=== PATIENT | female | born 1940 | race Caucasian/White ===

== ENCOUNTER → 2016-06-14 | Outpatient (CLI) | payer MEDICARE, OTHER | END | disposition home or self-care (01) | LOC: GMAB 10:26 | PROVIDERS: ATTEND Family Medicine | DX: Z79.899 Other long term (current) drug therapy (principal) ==

== ENCOUNTER 2017-03-03 16:57 | Observation (INO) | payer MEDICARE, OTHER ==
--- NOTE | 2017-03-03 17:47 | RAD ---
EXAM DESCRIPTION: Chest,1 View CLINICAL HISTORY: drowsy COMPARISON: 26 November 2011 TECHNIQUE: AP portable chest FINDINGS: A poor respiratory effect is observed. The heart is within range of normal. No pleural fluid is seen. Some atelectatic type parenchymal changes are observed in the lung bases. IMPRESSION: A poor respiratory effect is observed with basilar atelectatic type parenchymal changes. Electronically signed by: John Talley MD 03/03/2017 5:46 PM NUCLEAR FUELS RESEARCH ENGINEER
[2017-03-03] MEDS ORDERED: POTASSIUM CHLORIDE ELIXIR 20 MEQ/15 ML UD PO ONE (17:52)
[2017-03-03] MEDS ORDERED: SODIUM CHLORIDE 0.9% 1000ML 1,000 ML IVS ONE (18:47)
--- NOTE | 2017-03-03 19:35 | CT ---
Procedure: CT HEAD WITHOUT IV CONTRAST Exam Date: 03/03/2017 6:47 PM ENVIRONMENTAL CONSULTANT Ordering Provider: Shadi Merida Clinical Indication: drowsiness Comparison: None Technique: CT images of the head were obtained without contrast administration. Coronal and sagittal reformats were obtained. This exam was performed according to our departmental dose-optimization program which includes automated exposure control, adjustment of the mA and/or kV according to patient size and/or use of iterative reconstruction technique. Findings: There is no acute cortical infarction, hemorrhage, midline shift, mass effect, or hydrocephalus. The calvaria and skull base are unremarkable. Paranasal sinuses and mastoid air cells are well aerated. Impression: 1. No acute intracranial abnormality. Electronically signed by: Sae Mayen MD 03/03/2017 7:34 PM ENVIRONMENTAL CONSULTANT
--- NOTE | 2017-03-03 19:50 | ED.PDOC ---
History of Present Illness - General Chief Complaint: Neuro Symptoms/Deficits Stated Complaint: high bp Time Seen by Provider: 03/03/17 17:14 Source: patient, family Exam Limitations: clinical condition - History of Present Illness Initial Comments: The patient is a 77-year-old female presenting to the emergency room with family secondary to feeling drowsy and stumbling around when she is walking. She does know where she has she does know what's going on. There is some question as to whether the patient may be took one of her sleeping medications this morning on accident. She has been taking some cough and cold medications and did take a 24-hour Heather approximately 30-45 minutes before she became significantly drowsy. She has had some runny nose and a mild cough and a very mild sore throat. No nuchal rigidity. She is easily arousable and oriented here. She is not complaining of anything else. Timing/Duration: 1-3 hours Severity: moderate Improving Factors: nothing Worsening Factors: nothing Associated Symptoms: malaise Allergies/Adverse Reactions: Allergies NO KNOWN ALLERGY Allergy (Unverified 03/28/13 17:33) Home Medications: Ambulatory Orders Dextromethorphan Polistirex [Delsym Cough Childrens] 30 mg PO BID PRN 03/03/17 Esomeprazole Magnesium 40 mg PO DAILY 03/03/17 Fexofenadine HCl 180 mg PO DAILY 03/03/17 Temazepam 30 mg PO BEDTIME 03/03/17 Review of Systems - Review of Systems Constitutional: States: malaise EENTM: States: nose congestion, throat pain Respiratory: States: cough - ild Cardiology: States: no symptoms reported Gastrointestinal/Abdominal: States: no symptoms reported Genitourinary: States: no symptoms reported Musculoskeletal: States: no symptoms reported Skin: States: no symptoms reported Neurological: States: other - drowsy Endocrine: States: no symptoms reported Hematologic/Lymphatic: States: no symptoms reported All other Systems: No Change from Baseline Past Medical History (General) - Patient Medical History Hx Seizures: No Hx Stroke: No Hx Dementia: No Hx Asthma: No Hx of COPD: No Hx Cardiac Disorders: No Hx Congestive Heart Failure: No Hx Pacemaker: No Hx Hypertension: Yes - doesn't take medication Hx Thyroid Disease: No Hx Diabetes: No Hx Gastroesophageal Reflux: Yes Hx Renal Disease: No Hx Cancer: No Hx of HIV: No Hx Hepatitis C: No Hx MRSA: No - Vaccination History Hx Tetanus, Diphtheria Vaccination: No Hx Influenza Vaccination: No Hx Pneumococcal Vaccination: No Immunizations Up to Date: No - Social History Hx Tobacco Use: No Hx Chewing Tobacco Use: No Hx Alcohol Use: No Hx Substance Use: No Hx Substance Use Treatment: No Hx Depression: No Feels Threatened In Home Enviroment: No Feels Threatened In a Relationship: No Hx Physical Abuse: No Hx Emotional Abuse: No Hx Suspected Abuse: No - Female History Patient is a Female of Child Bearing Age (10 -59 yrs old): No Family Medical History - Family History Mother Family History: No Known Age at (years of age): 94 Cause of : old age Physical Exam - Physical Exam General Appearance: Comfortable, No apparent distress, Other - drowsy Eye Exam: bilateral normal Ears, Nose, Throat: hearing grossly normal, nasal congestion, pharyngeal erythema - mild Neck: non-tender, full range of motion Respiratory: lungs clear, normal breath sounds, no respiratory distress, no accessory muscle use Cardiovascular/Chest: normal peripheral pulses, regular rate, rhythm, no edema Peripheral Pulses: radial,right: 2+, radial,left: 2+, dorsalis pedis,right: 2+, dorsalis pedis,left: 2+ Gastrointestinal/Abdominal: non tender, soft Rectal Exam: deferred Back Exam: no CVA tenderness, no vertebral tenderness Extremity: normal range of motion, non-tender, normal inspection, no pedal edema , normal capillary refill Neurologic: occupational health nurse manager II-XII nml as tested, no motor/sensory deficits, oriented x 3 Skin Exam: normal color Comments: Vital Signs - 24 hr 03/03/17 03/03/17 03/03/17 16:57 17:06 17:57 Temperature 97.8 F Pulse Rate 67 Pulse Rate [ 83 83 67 Right Radial] Respiratory 18 18 18 Rate Blood Pressure 136/82 144/68 [Right Arm] O2 Sat by Pulse 96 98 Oximetry 03/03/17 03/03/17 18:00 19:00 Temperature 98.0 F Pulse Rate 67 Pulse Rate [ 76 74 Right Radial] Respiratory 18 20 Rate Blood Pressure 162/61 154/55 [Right Arm] O2 Sat by Pulse 96 96 Oximetry Progress - Progress Progress: 03/03/17 19:59 the patient is a 77-year-old female presenting with significant drowsiness of uncertain origin. It is however most likely due to the medication she has been taking for her recent cold in combination with her sleep medications. It is possible her sleep medications are not entirely worn off and she does take a rather large dose. She may have also accidentally taking one of her sleep pills. The patient has received a liter of IV fluids. We are going to monitor the patient overnight to monitor her mental status and make sure she improves rather than deteriorates. The patient has tested negative for flu. - Results/Orders Results/Orders: 03/03/17 17:14 Telemetry .CONTINUOUS nsr 03/03/17 19:36 UA [URINALYSIS] Stat pending Laboratory Results - last 24 hr 03/03/17 03/03/17 17:24 17:24 WBC 4.4 L RBC 4.27 Hgb 12.6 Hct 38.2 MCV 89.4 MCH 29.5 MCHC 33.0 RDW 13.8 Plt Count 254 MPV 7.4 Absolute Neuts (auto) 2.00 Absolute Lymphs (auto) 2.10 Absolute Monos (auto) 0.30 Absolute Eos (auto) 0.10 Absolute Basos (auto) 0.00 Neutrophils % 45.0 Lymphocytes % 46.3 Monocytes % 5.7 Eosinophils % 2.6 Basophils % 0.4 Sodium 138 Potassium 3.4 L Chloride 104 Carbon Dioxide 26 Anion Gap 11.4 L BUN 9 Creatinine 0.46 L BUN/Creatinine Ratio 19.6 Random Glucose 104 Serum Osmolality 274.7 L Calcium 9.3 Magnesium 2.0 Total Bilirubin 0.5 AST 19 ALT 19 Alkaline Phosphatase 82 Creatine Kinase 47 CK-MB (CK-2) 1.0 CK-MB (CK-2) % Not Reportable Troponin I < 0.02 B-Natriuretic Peptide 29.6 Serum Total Protein 6.6 Albumin 3.8 Globulin 2.8 Albumin/Globulin Ratio 1.4 telemetry monitoring shows normal sinus rhythm. chest x-ray shows no acute pathology. No overt pneumonia. No evidence of fluid overload. cT of the head shows no acute intracranial pathology. No evidence of a stroke or hemorrhage. Departure - Departure Clinical Impression: Altered mental status, unspecified Qualifiers: Altered mental status type: somnolence Qualified Code(s): R40.0 - Somnolence Disposition: Admit Patient Home Medications: Ambulatory Orders Dextromethorphan Polistirex [Delsym Cough Childrens] 30 mg PO BID PRN 03/03/17 Esomeprazole Magnesium 40 mg PO DAILY 03/03/17 Fexofenadine HCl 180 mg PO DAILY 03/03/17 Temazepam 30 mg PO BEDTIME 03/03/17 Decision To Admit - Decistion To Admit Decision to Admit Reason: Medical Nature Decision to Admit Date: 03/03/17 Decision to Admit Time: 20:01
--- NOTE | 2017-03-03 21:06 | HP ---
SUPERVISING PHYSICIAN: Kaleb Harry MD CHIEF COMPLAINT: Elevated blood pressure, drowsiness. HISTORY OF PRESENT ILLNESS: Ms. Pandya is a 77-year-old, female patient who presented to the Emergency Room today accompanied by her family secondary to reported feeling drowsy and some discoordination and stumbling around when she was walking. She noted she had an upper respiratory illness with a runny nose and congestion and has been taking cough medicine, Delsym, for the last several days. She noted that today she had taken her cough medicine and went to the [employer] and when she left the [employer], she started feeling strange, was dizzy, sleepy and felt like her blood pressure was high. She also notes she does take a high dose of sleep medication to include Restoril 30 mg at night. In addition to that, she has been taking Heather 24 hour for her sinus symptoms. She noted when she took her Heather shortly after taking her cough medicine, she became drowsy. In the Emergency Room, her blood pressure was noted to be slightly elevated initially with blood pressure of 136/ 82. Saturation 96% on room air with heart rate of 83 and she was afebrile. Her initial laboratory studies showed she had a normal CBC and chemistries indicated she had a mild hypokalemia with potassium 3.4. Otherwise, chemistries were within normal limits. Urinalysis was also within normal limits. She had a CT of the head and chest and per radiologic interpretation the CT of the head without contrast showed no acute intracranial abnormalities noted. On the chest film, there was just some poor inspiratory effort noted with some basilar atelectatic type of parenchymal changes. On exam in the Emergency Room per Emergency Room physician, Dr. Shadi Merida, the patient was found to be alert and oriented, just slightly drowsy, but was not showing any neuro focal deficits or any significant confusion. She was given some p.o. potassium a 1 liter of fluids. Given her drowsiness and concerns for possible adverse side effects from her Delsym and Heather, Dr. Merida requested the patient be placed in observation for close neuro observation and correction of her underlying hypokalemia. The patient was placed in observation in stable condition. PAST MEDICAL HISTORY: 1. Seasonal allergies. 2. Gastroesophageal reflux disease. 3. Osteoarthritis. 4. Depression. PAST SURGICAL HISTORY: 1. Left total knee arthroplasty. HOME MEDICATIONS: 1. Fexofenadine 180 mg daily. 2. Temazepam 30 mg daily. 3. Delsym cough 30 mg b.i.d. 4. Nexium 40 mg daily. ALLERGIES: NO KNOWN DRUG ALLERGIES. FAMILY HISTORY: Father at age 74 from aneurysm. Mother from myocardial infarction. There is also a history of ovarian cancer in siblings. SOCIAL HISTORY: The patient is retired. She lives in [place]. She is . She has never smoked, nor does she drink alcohol or use illicit drugs. REVIEW OF SYSTEMS: CONSTITUTIONAL: General malaise. No reported fevers. HEENT: Nasal congestion, sore throat. RESPIRATORY: Nonproductive cough. No reported shortness of breath or wheezing. CARDIOVASCULAR: Denies chest pain or palpitations. No syncopal or near syncopal episodes. GASTROINTESTINAL: Denies nausea or vomiting. No diarrhea or constipation or other bowel habit changes. GENITOURINARY: Denies dysuria, hematuria or other urinary symptoms. NEUROLOGIC: As noted in history of present illness, drowsy, but no reported focal deficits, no headaches, no significant vision changes. No syncopal episodes. PHYSICAL EXAMINATION: VITAL SIGNS: Temperature 97.8. Pulse 83. Blood pressure 136/82. Respirations 18. Saturation 96% on room air. Admission weight 59.5 kg. GENERAL: The patient appears to be alert and oriented on admission to the Medical/Surgical Floor. She is in no acute distress, resting comfortably. She is well-nourished, well-hydrated. HEENT: Tympanic membranes clear bilaterally. Oropharynx is pink, moist without any lesions. Posterior pharynx mildly erythematous. NECK: Supple, nontender with full range of motion. No jugular venous distention noted. CHEST: Lungs clear to auscultation bilaterally without any rhonchi, wheezes, or rales. CARDIOVASCULAR: Regular rate and rhythm without any appreciable murmurs, gallops, or rubs. ABDOMEN: Soft, nontender. Positive bowel sounds. EXTREMITIES: There is no cyanosis, clubbing or edema. NEUROLOGIC: The patient is alert and oriented times three. Cranial nerves II- XII are grossly intact. Facial features are symmetrical. Extraocular movements are within normal limits. There is no nystagmus noted. No motor or sensory deficits. LABORATORY: CBC showed white count 4,400, hemoglobin 12.6, hematocrit 30.2, platelet count 254,000, differential within normal limits. Chemistries showed mildly low potassium of 3.4, sodium normal at 138, BUN 9, creatinine 0.6, glucose 104, calcium 9.3, magnesium 2.0. Liver functions within normal limits. Cardiac enzymes within normal limits. Urinalysis showed just trace leukocyte esterase, otherwise within normal limits. MICROBIOLOGY: Influenza by PCR was negative for both A and B. RADIOLOGY: Chest x-ray in the Emergency Department, single view, portable, showed poor inspiratory effort with basilar atelectatic parenchymal changes. CT of the head without contrast per radiologic interpretation showed no acute intracranial abnormalities. Telemetry showed normal sinus rhythm. ASSESSMENT: 1. Hypersomnolence, possibly secondary to adverse effects from [id number] cough suppressant, dextromethorphan with no acute findings noted on CT of the head. 2. Mild electrolyte imbalance with hypokalemia. 3. Gastroesophageal reflux disease. 4. Chronic insomnia on temazepam. 5. Depression, not currently no an antidepressant. 6. Osteoarthritis. PLAN: The patient will be placed in observation tonight for close neurologic monitoring again with concerns for possible side effects from her cough suppressant. We will hold all medications to include her temazepam and Delsym. She was given 1 liter of fluid in the Emergency Room. This will be continued with additional fluids with normal saline with 20 of potassium at 80 an hour. She will be on DVT prophylaxis per protocol. We will anticipate her length of stay to be 1 to 2 days with anticipation of hopefully discharging tomorrow. We will plan to repeat her CMP in the morning and she should she show no changes in her neural status after ambulation efforts and if return to baseline neural status, the patient can be discharged with cautions on using her cough suppressants. Until then, we will continue to monitor the patient closely and treat appropriately. [facility][id number] [facility]
[2017-03-03] MEDS ORDERED: ACETAMINOPHEN 325 MG TAB PO PRN (22:14)
[2017-03-03] MEDS ORDERED: SODIUM CHLORIDE 0.9% (FLUSH) 10 ML SYG IV PRN (22:14)
[2017-03-03] MEDS ORDERED: IV SET AND CAP CHANGE INJ INJ SCH (22:30)
--- NOTE | 2017-03-03 23:01 | PCM.CORE ---
Physician DVT/VTE - Nurse DVT Assessment & Total Each Risk Factor Represents 3 Points: Age over 75 years DVT Assessment Score: 3 - 3-4 High Risk Treatments: Early Ambulation *, Sequential Compression Device Pharmacological: Enoxaparin 40 mg SQ Daily
[2017-03-03] MEDS: KCL 20 MEQ/NS 1,000 ML IVS PRN (23:48)
[2017-03-04] MEDS: KCL 20 MEQ/NS 1,000 ML IVS PRN (08:59)
[2017-03-04] MEDS ORDERED: ENOXAPARIN SODIUM 40 MG/0.4 ML SYG SUBCU SCH (09:00)
[2017-03-04] MEDS ORDERED: SODIUM CHLORIDE 0.9% (FLUSH) 10 ML SYG IV ONE (09:25)
[2017-03-04 10:09] VITALS: O2SAT 96
[2017-03-04 10:10] VITALS: BP 151/73; TEMP 99
--- NOTE | 2017-03-05 18:04 | DS ---
SUPERVISING PHYSICIAN: Kaleb Harry M.D. DISCHARGE DIAGNOSIS: 1. Hypersomnolence, possibly secondary to adverse effects from [id number] cough suppressant excessive usage with dextromethorphan with no acute findings on CT of the head. 2. Mild electrolyte imbalance with hypokalemia improved with replacement. 3. Gastroesophageal reflux disease. 4. Chronic insomnia on temazepam. 5. Depression, not currently on an antidepressant. 6. Osteoarthritis. REASON FOR HOSPITALIZATION: Ms. Pandya is a 77-year-old, female patient who presented to the Emergency Room on 03/03/17 accompanied by her family secondary to a report that she was feeling drowsy and had some discoordination and stumbling around when she was walking. She noted she had an upper respiratory illness with a runny nose and congestion and had been taking cough medicine to include Delsym for the last several days. She noted that today she had taken her cough medicine and went to the [employer] shop and when she left the [employer] shop, she started feeling strange, was dizzy, sleepy and felt like her blood pressure was high. She also noted she does take a high dose of sleep medication to include Restoril 30 mg at night. In addition to that, she had been taking Heather 24 hour for her sinus symptoms. She noted when she took her Heather shortly after taking her cough medicine, she became drowsy. In the Emergency Room, her blood pressure was noted to be slightly elevated initially with blood pressure of 136/82. Saturation showed 96 % on room air with heart rate of 83 and she was afebrile. Her initial laboratory studies indicated a normal CBC and chemistries had a mild hypokalemia with potassium 3.4. Otherwise, chemistries were within normal limits as well as urinalysis. She had a CT of the head and chest and per radiologic interpretation the CT of the head without contrast showed no acute intracranial abnormalities noted. On the chest film, there was just some poor inspiratory effort noted with some basilar atelectatic type of parenchymal changes. On exam in the Emergency Room per Emergency Room physician, Dr. Shadi Merida, the patient was found to be alert and oriented, just slightly drowsy, but was not showing any neurological deficits or any significant confusion. She was given some p.o. potassium a 1 liter of fluids. Given her drowsiness and concerns for possible adverse side effects from her Delsym and Heather, Dr. Merida requested the patient be placed in observation for close neuro observation and correction of her underlying hypokalemia. The patient was placed in observation in stable condition. LABORATORY STUDIES: White count was 4,400, otherwise hemoglobin and hematocrit were within normal limits as well as platelet count at 254,000. Hemoglobin showed to be 12.6, hematocrit 38.2. Differential showed to be within normal limits. Her initial chemistries showed a mild hypokalemia at 3.4, prior to discharge and after replacement her electrolytes had normalized with potassium 4.7, BUN was 8, creatinine 0.63 on discharge. Glucoses had been 100 to 104, calcium was normal at 9.3. At discharge, liver functions all showed to be within normal limits. On admission, she had a troponin that was less than 0.02. Urinalysis showed just a trace of leukocyte esterase and was otherwise within normal limits. MICROBIOLOGY: She had a Influenza swab for A and B by PCR and per those results were both negative for either A or B. RADIOLOGY: She had a chest x-ray in the Emergency Room prior to admission and per radiology interpretation there was poor respiratory effort observed with basilar atelectasis type parenchymal changes. She also had a head CT without contrast and per radiology interpretation there was no acute intracranial abnormalities noted. HOSPITAL COURSE: Ms. Pandya was admitted as noted above in her History of Present Illness for concerns for side effects of taking too much Delsym. On admission, she showed to be stable without any confusion and very comfortable. She had been given fluids. This was continued along with potassium replacement. Her medications were held overnight to include her temazepam and she was able to actually sleep through the night and in the morning was showing no signs or symptoms of either drowsiness or confusion. She was ambulated with assistance and showed no deficits, therefore it was felt that she had improved clinically well enough to be discharged home. PLAN: Ms. Pandya was discharged on 03/04/17 to have close clinical followup with her primary care provider, Dr. Banuleos. She was to call his office next week to establish an appointment time. She was instructed to take her home medications as directed except for modification of her temazepam which she was to decrease to 15 mg at bedtime until she had a chance to followup with Dr. Banuelos. She was to avoid using Delsym and other cough medicines other than prescribed medications to prevent any other side effects. She was to resume her home activities as tolerated. Her diet was to resume usual diet. Discharge medications included new prescriptions for: 1. Tessalon Perles 100 mg 3 times a day, #15. 2. Guaifenesin 600 mg a day, #15. 3. Temazepam 15 mg daily at bedtime, #15. She was to hold her temazepam 30 mg at bedtime until she is seen in followup. Again, all other medications were continued as prior to hospitalization. She was discharged again with diet to be regular diet as tolerated. Activity as tolerated. Condition on discharge was stable and improved. [facility][id number] [facility]
== END 2017-03-04 10:46 | disposition home or self-care (01) ==
LOC: ER 16:57 → MS 21:05
PROVIDERS: ADMIT Nurse Practitioner Family; ATTEND Nurse Practitioner Family
DX: R40.0 Somnolence (principal); E87.6 Hypokalemia; E87.8 Other disorders of electrolyte and fluid balance, not elsewhere classified; K21.9 Gastro-esophageal reflux disease without esophagitis; F51.04 Psychophysiologic insomnia; F32.9 Major depressive disorder, single episode, unspecified; M19.90 Unspecified osteoarthritis, unspecified site; J30.2 Other seasonal allergic rhinitis; Z79.899 Other long term (current) drug therapy
CPT/HCPCS: 36415 ×2; 70450; 71045; 80053 ×2; 81001; 82550; 82553; 83735; 83880; 84484; 85025; 87502; 94760 ×2; 96361; 96372; 96374; 96376; 99284; J1650; J3480 ×2; J7030

== ENCOUNTER → 2017-07-13 | Outpatient (CLI) | payer MEDICARE, OTHER | LOC: GMAB 10:45 | PROVIDERS: ATTEND Family Medicine | DX: Z79.899 Other long term (current) drug therapy (principal) ==

== ENCOUNTER → 2017-10-26 | Outpatient (CLI) | payer MEDICARE, OTHER ==
--- NOTE | 2017-10-26 22:06 | MRI ---
MRI right foot without contrast INDICATION: Foot pain x3 months status post trauma TECHNIQUE: Noncontrast MR imaging right foot FINDINGS: Mild thickening plantar aponeurosis with plantar enthesophyte. Achilles is intact. There is linear edema involving the cuboid middle and lateral cuneiforms suggesting nondisplaced fractures. There is also a contusion or nondisplaced fracture of the anterior talar dome with adjacent osteochondral lesion in the medial talar dome with subchondral cystic change. This lesion measures approximately 7 mm wide by 11 mm AP dimension. Subchondral fractures are visible in the middle and lateral cuneiforms and the sagittal T1 images. Similar changes of the distal cuboid These may be traumatic or insufficiency fractures. Diffuse soft tissue swelling is also noted. No complete tendon rupture noted. There is edema in the distal aspect of the proximal phalanx great toe likely degenerative. Lisfranc ligament complex is intact. Interstitial tendinosis and fissuring of the peroneus brevis. No complete split. There is minimal osteoarthrosis of the first and second MTP joints. IMPRESSION: Osteochondral lesion with edema medial talar dome Fractures of the middle and lateral cuneiforms and distal cuboid Interstitial tendinosis and fissuring peroneus brevis Electronically signed by: Rober Allen MD 10/26/2017 10:05 PM CDT
== END ==
LOC: MRI 13:00
PROVIDERS: ATTEND Family Medicine
DX: S92.211A Displaced fracture of cuboid bone of right foot, initial encounter for closed fracture (principal); S92.224A Nondisplaced fracture of lateral cuneiform of right foot, initial encounter for closed fracture; M95.8 Other specified acquired deformities of musculoskeletal system

== ENCOUNTER → 2017-11-06 | Outpatient (CLI) | payer MEDICARE, OTHER ==
--- NOTE | 2017-11-06 08:26 | RAD ---
EXAM DESCRIPTION: Foot,Right 3 Views CLINICAL HISTORY: 77 years, Female, FOOT PAIN COMPARISON: None TECHNIQUE: AP, lateral, and oblique views of the right foot FINDINGS: Mild degenerative changes are present. An accessory ossicle adjacent to the cuboid is noted. Calcaneal spurring is present. No fracture or dislocation or foreign body noted. IMPRESSION: Mild degenerative changes otherwise negative foot. Electronically signed by: Elieser Campbell MD 11/06/2017 8:25 AM CDT
== END ==
LOC: RAD 07:45
PROVIDERS: ATTEND Orthopaedic Surgery
DX: M79.671 Pain in right foot (principal)

== ENCOUNTER 2018-09-04 21:26 | Observation (INO) | payer MEDICARE, OTHER ==
[2018-09-04] MEDS ORDERED: MORPHINE SULFATE INJ 10 MG/ML VIAL IV ONE (21:39)
[2018-09-04] MEDS ORDERED: ONDANSETRON ODT 8 MG TAB SL ONE (21:46)
[2018-09-04] MEDS ORDERED: KETOROLAC TROMETHAMINE INJ 30 MG/ML VIAL IV ONE (22:03)
--- NOTE | 2018-09-04 22:16 | CT ---
PROCEDURE: Head CLINICAL HISTORY: 78 years Female abrupt onset severe sosa behind right eye COMPARISON: 03/03/2017. TECHNIQUE: Contiguous axial CT images obtained through the brain without IV contrast. This exam was performed according to our department optimization program which includes automated exposure control, adjustment of the mA and/or kv according to patient size and/or use of iterative reconstruction technique. FINDINGS: The ventricles and sulci appear unremarkable. Questionable slightly increased tissue at the posterior aspect of the cavernous sinus on the right. The possibility of a meningioma in this location is not totally excluded on this study. CT or MRI following IV contrast could be helpful to better evaluate. The appearance was similar on the previous study.. No acute hemorrhage. Microvascular ischemic changes. Small cyst in the medial left temporal lobe. Mild atherosclerotic calcifications. No fluid or significant mucosal thickening in the visualized paranasal sinuses. No depressed calvarial fractures. IMPRESSION: Questionable slightly increased tissue at the posterior aspect of the cavernous sinus on the right. The possibility of a meningioma in this location is not totally excluded on this study. CT or MRI following IV contrast could be helpful to better evaluate. The appearance was similar on the previous study.. Microvascular ischemic changes. Electronically signed by: Ruben Jones MD 09/04/2018 10:14 PM CDT
--- NOTE | 2018-09-04 23:24 | CT ---
EXAM: POSTCONTRAST BRAIN CT EXAMINATION. CLINICAL INDICATION: Right-sided headache COMPARISON: Compared to today's noncontrast brain CT examination and the noncontrast brain CT examination March 03, 2017. TECHNIQUE: Using low dose helical CT technique, thin section axial images were performed through the brain before and after the uncomplicated intravenous administration of iodinated contrast material. Coronal and sagittal reconstructions were obtained. FINDINGS: Brain volume is normal. No diffuse brain swelling or brain herniation. No hydrocephalus. No subdural or epidural hematomas. No large subacute brain infarction. No parenchymal brain hemorrhage or evidence of intracranial mass lesion. Cerebral white matter is grossly normal. Bones of the skull and skull base are normal. The middle ears and mastoid air cells are clear. There are no abnormally enhancing brain or dural based structures. No intracranial neoplasm, infection, vascular malformation or evidence of dural venous sinus thrombosis. Great vessels of the brain appear patent. IMPRESSION: 1. Normal post contrast brain CT examination. This exam was performed according to our departmental dose-optimization program, which includes automated exposure control, adjustment of the mA and/or kV according to patient size and/or use of iterative reconstruction technique. Electronically signed by: Cyril Arauz MD 09/04/2018 11:21 PM CDT
[2018-09-04] MEDS ORDERED: cloNIDine HCL 0.1 MG TAB PO ONE (23:27)
[2018-09-04] MEDS ORDERED: HYDROcodone 7.5MG/APAP 325MG 1 EA TAB PO ONE (23:27)
--- NOTE | 2018-09-04 23:46 | ED.PDOC ---
History of Present Illness - General Chief Complaint: Headache Stated Complaint: head pain Time Seen by Provider: 09/04/18 21:38 Source: patient, family Exam Limitations: no limitations - History of Present Illness Initial Comments: The patient is a 78-year-old female presenting to the emergency room secondary to start a very severe headache about an hour prior to arrival. She reports that she went outside to move some stuff around by her garage when she came back and she started having a pounding headache. It gradually worsened over about an hour. No nausea or vomiting. No syncope. No altered mental status. No fever. No nuchal rigidity. She has not been to a doctor in almost a year but she checked her blood pressure when she started getting a headache and the systolic was above 200. She does not take any blood pressure medicines. She received a dose of labetalol with EMS. Blood pressures were still above 200 upon arrival here. Upon arrival of patient is obviously very anxious. She indicates that the pain as above the right eye. There is mild tearing of the right eye. No history of any cluster headaches. No history of any vascular malformations. No pain in the eye. No visual changes. No pain over the temporal artery. No trauma. Timing/Duration: 1 hour Severity: severe Improving Factors: nothing Worsening Factors: nothing Associated Symptoms: headaches, loss of appetite Allergies/Adverse Reactions: Allergies Fentanyl Allergy (Unknown, Verified 09/04/18 23:37) Home Medications: Ambulatory Orders Esomeprazole Magnesium 40 mg PO DAILY 03/03/17 Fexofenadine HCl 180 mg PO DAILY 03/03/17 Benzonatate Perles [Tessalon Perles] 100 mg PO TID PRN #15 cap 03/04/17 Guaifenesin [Mucinex] 600 mg PO BID #15 tab 03/04/17 Temazepam [Restoril] 15 mg PO BEDTIME #15 cap 03/04/17 Review of Systems - Review of Systems Constitutional: States: no symptoms reported EENTM: States: no symptoms reported Respiratory: States: no symptoms reported Cardiology: States: no symptoms reported Gastrointestinal/Abdominal: States: no symptoms reported Genitourinary: States: no symptoms reported Musculoskeletal: States: no symptoms reported Skin: States: no symptoms reported Neurological: States: anxiety, headache Endocrine: States: no symptoms reported All other Systems: No Change from Baseline Past Medical History (General) - Patient Medical History Hx Seizures: No Hx Stroke: No Hx Dementia: No Hx Asthma: No Hx of COPD: No Hx Cardiac Disorders: No Hx Congestive Heart Failure: No Hx Pacemaker: No Hx Hypertension: Yes - doesn't take medication Hx Thyroid Disease: No Hx Diabetes: No Hx Gastroesophageal Reflux: Yes Hx Renal Disease: No Hx Cancer: No Hx of HIV: No Hx Hepatitis C: No Hx MRSA: No - Vaccination History Hx Tetanus, Diphtheria Vaccination: No Hx Influenza Vaccination: No Hx Pneumococcal Vaccination: No Immunizations Up to Date: No - Social History Hx Tobacco Use: No Hx Chewing Tobacco Use: No Hx Alcohol Use: No Hx Substance Use: No Hx Substance Use Treatment: No Hx Depression: No Hx Physical Abuse: No Hx Emotional Abuse: No Hx Suspected Abuse: No - Female History Patient is a Female of Child Bearing Age (10 -59 yrs old): No - Triage Comment ED Triage Comment: patient complaining of 10/10 head pain, with elevated B/P. Patient A&O to PPTE with a RASS of 0. Airway patent, denies SOB/CP Family Medical History - Family History Mother Family History: No Known Age at (years of age): 94 Cause of : old age Physical Exam - Physical Exam General Appearance: Alert, Anxious Eye Exam: bilateral normal - mild tearing of the right eye. Pupil is reactive and symmetrical bilaterally. No obvious vision changes. Ears, Nose, Throat: hearing grossly normal, normal ENT inspection, normal pharynx Neck: full range of motion, supple, normal inspection Respiratory: lungs clear, normal breath sounds, no respiratory distress, no accessory muscle use Cardiovascular/Chest: normal peripheral pulses, regular rate, rhythm, no edema Peripheral Pulses: radial,right: 2+, radial,left: 2+, dorsalis pedis,right: 2+, dorsalis pedis,left: 2+ Gastrointestinal/Abdominal: non tender, soft Rectal Exam: deferred Back Exam: no CVA tenderness, no vertebral tenderness Extremity: non-tender, normal inspection, no pedal edema, normal capillary refill 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 Skin Exam: normal color Comments: Vital Signs - 24 hr 09/04/18 09/04/18 09/04/18 21:28 22:08 22:30 Temperature 98.0 F Pulse Rate [ 65 68 65 Right Apical] Respiratory 20 22 Rate Blood Pressure 194/80 167/73 [Right Arm] O2 Sat by Pulse 99 100 Oximetry 09/04/18 23:21 Temperature Pulse Rate [ 68 Right Apical] Respiratory 20 Rate Blood Pressure 161/65 [Right Arm] O2 Sat by Pulse 96 Oximetry Progress - Progress Progress: 09/04/18 23:48 the patient is a 78-year-old female presenting to the emergency room secondary to hypertensive urgency with a significant headache. Workup has failed to show any other pathology behind the headache at this time. We did give her high flow oxygen for about 30 minutes as the presentation could be seen as consistent with a cluster headache. She has never had any history of any cluster headaches however in the past. Triptans were avoided secondary to hypertension. the headache has significantly improved since her arrival but is still mildly present. Laboratory work is reassuring. blood pressures were trending down nicely into the 160s on the systolic end until family started to leave for the night and then they did jump back up into the 180s and 190s. anxiety does play a significant component in this patient's blood pressure. The patient is being dosed with clonidine at this point. The patient will be admitted for control of her blood pressure and for monitoring of symptoms. - Results/Orders Results/Orders: CT scan of the head without and with contrast shows no evidence of any obvious acute pathology. No evidence of any hemorrhage. No evidence of any significant mass. No evidence of significant sinus disease. Laboratory Tests 09/04/18 09/04/18 09/04/18 21:10 21:10 21:10 WBC 6.5 RBC 4.37 Hgb 13.5 Hct 39.7 MCV 90.9 MCH 30.9 MCHC 34.0 RDW 13.0 Plt Count 311 MPV 7.4 Absolute Neuts (auto) 3.50 Absolute Lymphs (auto) 2.30 Absolute Monos (auto) 0.50 Absolute Eos (auto) 0.10 Absolute Basos (auto) 0.00 Neutrophils % 54.8 Lymphocytes % 36.2 Monocytes % 7.5 Eosinophils % 1.0 Basophils % 0.5 PT 9.3 INR 0.93 PTT (SP) 23.1 Sodium 138 Potassium 3.8 Chloride 103 Carbon Dioxide 25 Anion Gap 13.8 BUN 12 Creatinine 0.47 L BUN/Creatinine Ratio 25.5 H Random Glucose 112 H Serum Osmolality 276.2 Calcium 10.0 Magnesium Total Bilirubin 0.6 AST 20 ALT 14 Alkaline Phosphatase 77 Serum Total Protein 7.5 Albumin 4.7 Globulin 2.8 Albumin/Globulin Ratio 1.7 09/04/18 21:10 WBC RBC Hgb Hct MCV MCH MCHC RDW Plt Count MPV Absolute Neuts (auto) Absolute Lymphs (auto) Absolute Monos (auto) Absolute Eos (auto) Absolute Basos (auto) Neutrophils % Lymphocytes % Monocytes % Eosinophils % Basophils % PT INR PTT (SP) Sodium Potassium Chloride Carbon Dioxide Anion Gap BUN Creatinine BUN/Creatinine Ratio Random Glucose Serum Osmolality Calcium Magnesium 2.1 Total Bilirubin AST ALT Alkaline Phosphatase Serum Total Protein Albumin Globulin Albumin/Globulin Ratio - EKG/XRAY/CT CT Ordered: Yes Departure - Departure Clinical Impression: Hypertensive urgency, Malignant hypertension, Headache above the eye region, Anxiety about health Disposition: Admit Patient Departure Forms: ED Discharge - Pt. Copy, Patient Portal Self Enrollment Home Medications: Ambulatory Orders Esomeprazole Magnesium 40 mg PO DAILY 03/03/17 Fexofenadine HCl 180 mg PO DAILY 03/03/17 Benzonatate Perles [Tessalon Perles] 100 mg PO TID PRN #15 cap 03/04/17 Guaifenesin [Mucinex] 600 mg PO BID #15 tab 03/04/17 Temazepam [Restoril] 15 mg PO BEDTIME #15 cap 03/04/17 Decision To Admit - Decistion To Admit Decision to Admit Reason: Medical Nature Decision to Admit Date: 09/04/18 Decision to Admit Time: 23:53
[2018-09-05] MEDS ORDERED: PROMETHAZINE HCL INJ 12.5 MG in SODIUM CHLORIDE 0.9% 50ML 50 ML IVPB ONE (01:06)
[2018-09-05] MEDS ORDERED: ONDANSETRON INJ 4 MG/2 ML VIAL IV PRN (01:10)
[2018-09-05] MEDS ORDERED: MORPHINE SULFATE INJ 10 MG/ML VIAL IV PRN (01:10)
[2018-09-05] MEDS ORDERED: SODIUM CHLORIDE 0.9% (FLUSH) 10 ML SYG IV PRN (01:10)
[2018-09-05] MEDS ORDERED: ACETAMINOPHEN 325 MG TAB PO PRN (01:10)
[2018-09-05] MEDS ORDERED: PROMETHAZINE HCL INJ 25 MG/ML VIAL ONE (01:13)
[2018-09-05] MEDS ORDERED: SODIUM CHLORIDE 0.9% 50ML 50 ML ONE (01:13)
[2018-09-05] MEDS ORDERED: IV SET AND CAP CHANGE INJ INJ SCH (01:30)
[2018-09-05] MEDS ORDERED: PANTOPRAZOLE SODIUM TAB 40 MG PO SCH (09:00)
[2018-09-05] MEDS ORDERED: ACETAMINOPHEN W/COD #3 TAB 1 EA TAB PO PRN (09:36)
[2018-09-05 10:46] VITALS: O2SAT 97
[2018-09-05 14:06] VITALS: BP 106/69; TEMP 97.7
[2018-09-05] MEDS ORDERED: TEMAZEPAM 15 MG CAP PO SCH (21:00)
--- NOTE | 2018-09-07 09:10 | SSS ---
SUPERVISING PHYSICIAN: Fernando Valentin MD DATE OF ADMISSION: 09/05/18 DATE OF DISCHARGE: 09/05/18 ADMISSION DIAGNOSIS: 1. Hypertensive urgency, uncertain etiology. 2. Cluster headache secondary to #1. 3. Gastroesophageal reflux disease. 4. Chronic anxiety, likely contributing to #1. DISCHARGE DIAGNOSIS: 1. Hypertensive urgency, uncertain etiology, now normotensive without any additional intervention needed. 2. Cluster headache secondary to #1, now resolved after normalizing blood pressure, felt to be exacerbated by acute anxiety attack. 3. Gastroesophageal reflux disease. 4. Chronic anxiety, likely contributing to #1. HISTORY OF PRESENT ILLNESS: Ms. Pandya is a 78-year-old female patient who initially presented to the Emergency Room secondary to high blood pressure with significant headache. In the Emergency Room, her initial workup was without any significant pathology behind the headache. She was placed on oxygen for 30 minutes which did help her symptoms. She was given clonidine, Toradol, morphine and Phenergan in the Emergency Room which did improve her symptoms. The patient was able to get some relief and had good control of her blood pressure. After medications and prior to admission, the patient's blood pressure was as 161/65. Her laboratory studies showed normal CBC, PT, PTT and chemistries were unremarkable as well with normal electrolytes, normal magnesium. She was observed in the Emergency Room for a short period of time, but given the fact she is having new onset of headaches and had some hypertensive urgency, there was concern that her blood pressure would again elevate. Given the symptoms prior to admission to the Floor, she had a CT of the head, both with and without contrast. Initial CT without contrast showed questionable slightly increased tissue of the posterior aspect of the cavernous sinus on the right, possibility of a meningioma in this location is not totally excluded. Therefore, CT was recommended with IV contrast and per radiologic interpretation of CT with IV contrast, the exam was noted to be normal with no large subacute brain infarction, subdural hematomas. The abnormality on the previous CT was not noted. There were no intracranial neoplasms, infection, vascular malformation or evidence of dural venous sinus thrombosis. Given the findings on CT, the patient was placed in Observation for further neurological evaluation and monitoring of blood pressures. She was placed in Observation in stable condition. PAST MEDICAL HISTORY: 1. Seasonal allergies. 2. Gastroesophageal reflux disease. 3. Osteoarthritis. 4. Depression. PAST SURGICAL HISTORY: 1. Left total knee arthroplasty. HOME MEDICATIONS: 1. Clonazepam 30 mg at bedtime. 2. Nexium 40 mg daily. 3. Multivitamin. ALLERGIES: FENTANYL FAMILY HISTORY: Father is at age 74 from aneurysm. Mother is from myocardial infarction. There is also history of ovarian cancer in the family. SOCIAL HISTORY: The patient is retired. She lives in [place]. She is . She has never smoked, does not drink alcohol or use illicit drugs. REVIEW OF SYSTEMS: CONSTITUTIONAL: Negative for general malaise, fatigue, unintentional weight loss. HEENT: Negative for sore throats, earaches, nasal congestion, vision changes. Positive for headache behind the right eye. RESPIRATORY: Negative for coughing, wheezing, shortness of breath. CARDIOVASCULAR: Negative for chest pain, palpitations, syncopal episodes or near syncopal episodes. GASTROINTESTINAL: Negative for nausea, vomiting, diarrhea, constipation or abdominal pain. GENITOURINARY: Negative for dysuria, hematuria, polyuria. NEUROLOGIC: As noted in history of present illness. There are no focal motor deficits reported other than the headache. No significant vision changes, no syncopal episodes, no ataxia, no seizures. PHYSICAL EXAMINATION: VITAL SIGNS: Initial blood pressure 194/80. Heart rate 65. Oxygen saturation 99% on room air. Respirations 20. Temperature 98. After clonidine and other pharmacological intervention, repeat blood pressure prior to admission was 167/73. GENERAL: The patient is resting comfortable on the Medical/Surgical Floor and appears to be without any acute distress. She is alert. HEENT: Tympanic membranes clear bilaterally. Oropharynx is pink, moist without any lesions. NECK: Supple, nontender with full range of motion. No jugular venous distention noted. RESPIRATORY: Lungs clear to auscultation bilaterally without any rhonchi, wheezes or rales. CARDIOVASCULAR: Regular rate and rhythm without any appreciable murmurs, gallops, or rubs. ABDOMEN: Soft, nontender. Positive bowel sounds. BACK: No demonstrable CVA tenderness or vertebral tenderness. EXTREMITIES: She is moving all extremities ad renee. NEUROLOGIC: The patient is alert and oriented times three. Cranial nerves II- XII are grossly intact. Facial features are symmetrical. SKIN: [place], warm and dry. LABORATORY: White count initially on admission 4,400. At discharge, 6,500. Hemoglobin and hematocrit were stable on admission and at discharge at hemoglobin 13.7 and hematocrit 39.7. Differential never showed a left shift. Coag studies were all within normal limits. Initial chemistries showed a low potassium at 3.4, BUN 9, creatinine 0.46. Liver functions all within normal limits. Troponin less than 0.02. Prior to discharge, electrolytes were within normal limits with potassium 3.8, creatinine 0.47. Urinalysis showed a trace leukocyte esterase, otherwise within normal limits. RADIOLOGY: CT of the head with and without contrast, initial CT found some suspicious findings which was followed with CT of the head with contrast which was without any acute findings. HOSPITAL COURSE: Initially in the Emergency Room, was treated for a questionable cluster headache with multiple pain management regimen which did improve her symptoms. She was then admitted to the Medical/Surgical Floor for further evaluation. ASSESSMENT: 1. Hypertensive urgency, uncertain etiology, now normotensive without any additional intervention needed. 2. Cluster headache secondary to #1, now resolved after normalizing blood pressure, felt to be exacerbated by acute anxiety attack. 3. Gastroesophageal reflux disease. 4. Chronic anxiety, likely contributing to #1. PLAN: The patient was observed for short stay and essentially had her headache resolve before she got to the Floor. She remained stable overnight with no return of any concerning blood pressures. She has no further interventions. She was resting well. After talking to Dr. Valentin and discussing the case, it was felt the patient more likely had a cluster headache. Therefore, arrangements were made for the patient to be discharged and followup with Dr. Valentin the day after discharge. No new medications were prescribed at time of discharge. All medications prior to hospitalization were continued. Diet was regular diet as tolerated. Activity was as tolerated. CONDITION AT DISCHARGE: Stable and improved. DISPOSITION: The patient was discharged to care of family members. #[id number] MTDD
== END 2018-09-05 14:20 | disposition home or self-care (01) ==
LOC: ER 21:26 → MS 23:57
PROVIDERS: ADMIT Nurse Practitioner Family; ATTEND Nurse Practitioner Family
DX: I16.0 Hypertensive urgency (principal); I10 Essential (primary) hypertension; G44.009 Cluster headache syndrome, unspecified, not intractable; F41.9 Anxiety disorder, unspecified; K21.9 Gastro-esophageal reflux disease without esophagitis; F32.9 Major depressive disorder, single episode, unspecified; M19.90 Unspecified osteoarthritis, unspecified site; J30.2 Other seasonal allergic rhinitis; Z79.899 Other long term (current) drug therapy; Z88.5 Allergy status to narcotic agent; Z82.49 Family history of ischemic heart disease and other diseases of the circulatory system; Z80.41 Family history of malignant neoplasm of ovary
CPT/HCPCS: 96365; 96375; J1885; J2060; J2270; J2550; A4216; 80053; 36415 ×2; 85025; 83735; 85730; 85610; 70450; 70460; 94760 ×2; 99285; G0378

== ENCOUNTER → 2018-09-17 | Outpatient (CLI) | payer MEDICARE, OTHER | LOC: GMAE 14:12 | PROVIDERS: ATTEND Family Medicine | DX: I10 Essential (primary) hypertension (principal) ==

== ENCOUNTER → 2018-10-22 | Outpatient (CLI) | payer MEDICARE, OTHER ==
--- NOTE | 2018-10-22 16:51 | RAD ---
EXAM DESCRIPTION: Pelvis: CR/DR/XR CLINICAL HISTORY: PAIN IN LEFT HIP COMPARISON: None Available. TECHNIQUE: One view FINDINGS: No fracture dislocation. Decreased bone density. Bilateral hip joints are symmetric. Minimal hypertrophy superior lateral right acetabular facet. No abnormal radiodense objects in the soft tissues or joint spaces. Hypertrophic changes bilateral greater trochanters, more right. Calcification superior to the right greater trochanter possibly within the hip flexor tendon. Enthesophytes bilateral iliac crests. Spondylosis L5-S1. No definite fracture. IMPRESSION: Decreased bone density. No fracture. Hypertrophic changes in the remaining greater trochanter more than the left with calcification in the tendon. Correlate for greater trochanteric bursitis. Minimal hypertrophy superior lateral right acetabular facet.. Electronically signed by: Ton Clinton MD 10/22/2018 4:50 PM CDT
--- NOTE | 2018-10-22 16:59 | RAD ---
EXAM DESCRIPTION: Knee,Left Complete: CR/DR/XR. CLINICAL HISTORY: 78 years FemalePAIN IN LEFT KNEE COMPARISON: Radiographs of the pelvis on this visit. TECHNIQUE: three views left knee. Standing AP, standing AP with 45 degrees flexion, and lateral standing flexion image. FINDINGS: Left total knee arthroplasty. Customary position and near-anatomic alignment. No bony complications abutting the components. No joint effusion. No abnormal radiodense objects in the soft tissues or joint space. IMPRESSION: Left total knee arthroplasty with no bony or hardware complications. Electronically signed by: Ton Clinton MD 10/22/2018 4:57 PM CDT
== END ==
LOC: RAD 10:44
PROVIDERS: ATTEND Orthopaedic Surgery
DX: M25.562 Pain in left knee (principal); M85.88 Other specified disorders of bone density and structure, other site; M65.251 Calcific tendinitis, right thigh; M25.552 Pain in left hip; Z96.652 Presence of left artificial knee joint

== ENCOUNTER → 2018-10-30 | Outpatient (CLI) | payer MEDICARE, OTHER ==
--- NOTE | 2018-10-31 11:48 | NM ---
EXAM DESCRIPTION: Bone Scan, 3Phase: Nuclear Medicine CLINICAL HISTORY: 78 years Female PAIN IN LEFT KNEE. Left total knee arthroplasty. COMPARISON: Radiographs left knee 10/22/2018. Triple phase radionuclide bone scan bilateral knees 10/15/2015. TECHNIQUE: Patient injected with 23.8 mCi of technetium 99M MDP IV. Immediate flow gamma camera images were obtained of the bilateral knees from anterior planes for 90 seconds. "Blood pool" images were then obtained of the bilateral knees at 20 minutes after injection, from anterior and posterior planes. Delayed gamma camera images from anterior, posterior, and bilateral oblique planes were obtained 3 hr after injection. FINDINGS: Flow phase: No increased flow to the bilateral knees. Minimal photopenia in the left knee related to total knee arthroplasty. Blood pool phase: Again seen photopenia left knee related to the arthroplasty components. Otherwise symmetric appearance with the right knee. Delayed phase: Nonspecific activity around the femoral component and the tibial component with photopenia. No activity abutting the femoral stem or the tibial stem of the prosthetic. Increased activity in the medial and lateral right knee consistent with, but nonspecific for osteoarthritis. IMPRESSION: Triple phase bone scan of the left total knee arthroplasty showing nonspecific activity around the arthroplasty on the delayed phase. No abnormalities in the flow or blood pool phases. This indicates that pain in the left knee is not caused by infection or loosening of the arthroplasty. Similar findings to the study in September 2015. Electronically signed by: Ton Clinton MD 10/31/2018 11:47 AM CDT
== END ==
LOC: NM 08:30
PROVIDERS: ATTEND Orthopaedic Surgery
DX: M25.562 Pain in left knee (principal); Z96.652 Presence of left artificial knee joint
CPT/HCPCS: 78315; A9503

== ENCOUNTER → 2020-01-29 | Outpatient (CLI) | payer MEDICARE, OTHER ==
--- NOTE | 2020-01-29 13:26 | RAD ---
Study: Frontal and Lateral Radiographs of the Chest. Indication: CORONAVIRUS INFECTION, UNSP Comparison: March 03, 2017 Impression: Mild cardiomegaly. Thoracic aorta is tortuous. Interstitial markings prominent bilaterally and appear similar to the prior and likely reflect chronic scarring but may reflect mild edema or atypical infection. No consolidation, pleural effusion, pneumothorax. Degenerative changes of the spine noted. Electronically signed by: Domingo Fuentes MD 01/29/2020 1:24 PM PLATFORM MILL SUPERVISOR
--- NOTE | 2020-01-29 21:39 | CT ---
EXAM: CTA chest with contrast CLINICAL INDICATION: Chest pain, shortness of breath COMPARISON: Cough, COVID-19 . TECHNIQUE: CTA of the chest was performed using contiguous axial 2.5mm postcontrast sections through the chest including IV contrast with 3-D reconstructions. This exam was performed according to our departmental dose-optimization program, which includes automated exposure control, adjustment of the mA and/or kV according to patient size and/or use of iterative reconstruction technique. FINDINGS: There is no evidence of pulmonary embolism. There are no findings to suggest aortic dissection. There are no enlarged mediastinal or hilar lymph nodes. The visualized portions of the upper abdominal structures are unremarkable. There are scattered groundglass opacities in the bilateral lower lobes, right middle lobe and lingula. The lungs are otherwise clear. There is no pneumothorax or pleural effusion. IMPRESSION: 1. No evidence of pulmonary embolism. 2. Scattered groundglass infiltrates in the lungs suspicious for pneumonia including the possibility of COVID-19. I telephoned these findings to Dr. Valentin at 6:06 PM central time on 01/29/2020. Electronically signed by: Crescencio Suazo MD 01/29/2020 6:06 PM AEROSPACE STRESS ENGINEER
== END ==
LOC: LAB.O 13:00
PROVIDERS: ATTEND Family Medicine
DX: B34.2 Coronavirus infection, unspecified (principal); R91.8 Other nonspecific abnormal finding of lung field; I51.7 Cardiomegaly; Q25.46 Tortuous aortic arch

== ENCOUNTER → 2020-02-11 | Outpatient (CLI) | payer MEDICARE, OTHER | LOC: ECHO 09:57 | PROVIDERS: ATTEND Family Medicine | DX: I51.7 Cardiomegaly (principal); I50.30 Unspecified diastolic (congestive) heart failure; I35.1 Nonrheumatic aortic (valve) insufficiency; R06.02 Shortness of breath ==